=== PATIENT | female | born 1990 | race Caucasian/White ===

== ENCOUNTER 2020-08-19 16:07 | Emergency (ER) | payer SELFPAY ==
[2020-08-19] MEDS ORDERED: Sodium Chloride 0.9% 1,000 ML IV ONE (16:22)
--- NOTE | 2020-08-19 16:37 | EDM.PDOC ---
ED HPI GENERAL MEDICAL PROBLEM - General Chief Complaint: Behavioral/Psych Stated Complaint: [facility] Time Seen by Provider: 08/19/20 16:14 Source of Information: Reports: Patient, EMS Notes Reviewed, Significant Other () History Limitations: Reports: No Limitations - History of Present Illness INITIAL COMMENTS - FREE TEXT/NARRATIVE: Patient is a 30-year-old female who presents to the ED via [facility] for the evaluation of her increased lethargy. [facility] staff noted that they were called to the patient's house from the patient's as he states over the last 3 days, the patient has had increased lethargy where she has been sleeping all day. He notes she has not been eating or drinking much at all, is very concerned for her health. He notes that when she tries to get up to go to the bathroom or anywhere, she is very weak and he has to assist her or carry her. He does note she has a history of hydrocephalus, and has a [employer] shunt which he thinks was placed when she was around 8 years old. Upon presentation, the patient does answer questions as appropriate, she knows she is in the hospital but she does not know which town she is in. The notes that they recently moved from [place], and are moving back at the end of the school year. She has not had any fevers or chills, no nausea or vomiting, no cough or shortness of breath, and the denies any sick contacts that the patient may have had. He notes that since 11 PM on , she went to bed and is just been sleeping all weekend. Patient herself denies any sort of drug use. - Related Data Allergies Allergy/AdvReac Type Severity Reaction Status Date / Time No Known Allergies Allergy Verified 08/19/20 16:16 Home Meds: Home Meds . [Unable to Verify Home Med List] 08/19/20 [History] Past Medical History Neurological History: Reports: Other (See Below) Other Neuro History: hydrocephalus with V-P shunt Social & Family History - Tobacco Use Tobacco Use Status *Q: Never Tobacco User - Recreational Drug Use Recreational Drug Use: No ED ROS GENERAL - Review of Systems Review Of Systems: Comprehensive ROS is negative, except as noted in HPI. - Physical Exam Exam: See Below Exam Limited By: No Limitations General Appearance: Alert (when prompted), WD/WN (pt does have a vague smell of ketones to her), No Apparent Distress, Lethargic Eye Exam: Bilateral Eye: EOMI, Normal Inspection, PERRL Head Exam: Atraumatic, Normocephalic Neck: Normal Inspection Respiratory/Chest: No Respiratory Distress, Lungs Clear, Normal Breath Sounds, No Accessory Muscle Use, Chest Non-Tender Cardiovascular: Normal Peripheral Pulses, Regular Rate, Rhythm, No Edema GI/Abdominal: Normal Bowel Sounds, Soft, Non-Tender, No Distention, No Mass Neuro Exam (Abbreviated): Alert (when prompted, otherwise falls back asleep easily), Normal Cognition (she knows that she is in a hospital, but does not know the town.), No Motor/Sensory Deficits Extremities: Normal Inspection, Normal Capillary Refill Psychiatric: Normal Affect, Normal Mood Skin Exam: Warm, Dry, Intact, Normal Color, No Rash Course - Vital Signs Last Recorded V/S: Last Vital Signs Temp 98.7 F 08/19/20 16:12 Pulse 60 08/19/20 16:12 Resp 16 08/19/20 16:12 BP 114/60 08/19/20 16:12 Pulse Ox 100 08/19/20 16:12 - Orders/Labs/Meds Orders: Active Orders 24 hr Category Date Time Status CULTURE BLOOD [BC] Stat Lab 08/19/20 16:20 Ordered CULTURE BLOOD [BC] Stat Lab 08/19/20 16:20 Ordered CULTURE URINE [RM] Routine Lab 08/19/20 17:23 Ordered REFLEX LACTIC ACID YES OR NO [CHEM] Routine Lab 08/19/20 18:09 Received Blood Culture x2 Reflex Set [OM.PC] Stat Oth 08/19/20 16:20 Ordered Labs: Laboratory Tests 08/19/20 08/19/20 08/19/20 Range/Units 16:15 16:15 16:15 WBC 8.36 (3.98-10.04) K/mm3 RBC 4.13 (3.98-5.22) M/mm3 Hgb 12.5 (11.2-15.7) gm/dl Hct 38.6 (34.1-44.9) % MCV 93.5 (79.4-94.8) fl MCH 30.3 (25.6-32.2) pg MCHC 32.4 (32.2-35.5) g/dl RDW Std Deviation 44.2 (36.4-46.3) fL Plt Count 252 (182-369) K/mm3 MPV 10.7 (9.4-12.3) fl Neutrophils % (Manual) 69 H (40-60) % Band Neutrophils % 0 (0-10) % Lymphocytes % (Manual) 26 (20-40) % Atypical Lymphs % 0 % Monocytes % (Manual) 3 (2-10) % Eosinophils % (Manual) 0 L (0.7-5.8) % Basophils % (Manual) 2 H (0.1-1.2) Platelet Estimate Adequate Plt Morphology Comment Normal RBC Morph Comment Normal PT 11.9 (9.7-12.0) SECONDS INR 1.11 APTT 22.2 (21.7-31.4) SECONDS D-Dimer, Quantitative 0.22 (0.19-0.50) mg/L Sodium (136-145) mEq/L Potassium (3.5-5.1) mEq/L Chloride (98-107) mEq/L Carbon Dioxide (21-32) mEq/L Anion Gap (5-15) BUN (7-18) mg/dL Creatinine (0.55-1.02) mg/dL Est Cr Clr Drug Dosing mL/min Estimated GFR (MDRD) (>60) mL/min BUN/Creatinine Ratio (14-18) Glucose (74-106) mg/dL Lactic Acid (0.4-2.0) mmol/L Calcium (8.5-10.1) mg/dL Magnesium (1.8-2.4) mg/dl Ferritin (8-252) ng/ml Total Bilirubin (0.2-1.0) mg/dL AST (15-37) U/L ALT (14-59) U/L Alkaline Phosphatase (46-116) U/L Lactate Dehydrogenase (81-234) U/L Troponin I (0.00-0.056) ng/mL C-Reactive Protein 0.3 (<1.0) mg/dL NT-Pro-B Natriuret Pep (0-125) pg/mL Total Protein (6.4-8.2) g/dl Albumin (3.4-5.0) g/dl Globulin gm/dL Albumin/Globulin Ratio (1-2) Urine Color (Yellow) Urine Appearance (Clear) Urine pH (5.0-8.0) Ur Specific [place] (1.005-1.030) Urine Protein (Negative) Urine Glucose (UA) (Negative) Urine Ketones (Negative) Urine Occult Blood (Negative) Urine Nitrite (Negative) Urine Bilirubin (Negative) Urine Urobilinogen (0.2-1.0) Ur Leukocyte Esterase (Negative) Urine RBC (0-5) /hpf Urine WBC (0-5) /hpf Ur Epithelial Cells (0-5) /hpf Urine Bacteria (FEW) /hpf Urine Mucus (FEW) /hpf Urine HCG, Qual (NEGATIVE) Salicylates (2.8-20) mg/dL Urine Opiates Screen (OEIKDJ=382) Ur Buprenorphine Scrn (CUTOFF=10) Ur Oxycodone Screen (UEU2FJ=680) Urine Methadone Screen (ERLLQO=793) Ur Propoxyphene Screen (ULPNLW=531) Acetaminophen (10-30) ug/mL Ur Barbiturates Screen (PGDUQW=625) Ur Tricyclics Screen (ZRXJGN=937) Ur Phencyclidine Scrn (CUTOFF=25) Ur Amphetamine Screen (PXQWOL=080) U Methamphetamines Scrn (VSLRFZ=335) U Benzodiazepines Scrn (JTOBII=218) U Cocaine Metab Screen (YDWCSV=094) U Marijuana (THC) Screen (CUTOFF=50) Ethyl Alcohol (0.00) gm% Ketones (0.0-0.3) mM Influenza Type A RNA (NEGATIVE) Influenza Type B RNA (NEGATIVE) SARS-CoV-2 RNA (NHUNG) (NEGATIVE) 08/19/20 08/19/20 08/19/20 Range/Units 16:15 16:15 16:15 WBC (3.98-10.04) K/mm3 RBC (3.98-5.22) M/mm3 Hgb (11.2-15.7) gm/dl Hct (34.1-44.9) % MCV (79.4-94.8) fl MCH (25.6-32.2) pg MCHC (32.2-35.5) g/dl RDW Std Deviation (36.4-46.3) fL Plt Count (182-369) K/mm3 MPV (9.4-12.3) fl Neutrophils % (Manual) (40-60) % Band Neutrophils % (0-10) % Lymphocytes % (Manual) (20-40) % Atypical Lymphs % % Monocytes % (Manual) (2-10) % Eosinophils % (Manual) (0.7-5.8) % Basophils % (Manual) (0.1-1.2) Platelet Estimate Plt Morphology Comment RBC Morph Comment PT (9.7-12.0) SECONDS INR APTT (21.7-31.4) SECONDS D-Dimer, Quantitative (0.19-0.50) mg/L Sodium 145 (136-145) mEq/L Potassium 4.0 (3.5-5.1) mEq/L Chloride 110 H (98-107) mEq/L Carbon Dioxide 23 (21-32) mEq/L Anion Gap 16.0 H (5-15) BUN 14 (7-18) mg/dL Creatinine 0.8 (0.55-1.02) mg/dL Est Cr Clr Drug Dosing 77.31 mL/min Estimated GFR (MDRD) > 60 (>60) mL/min BUN/Creatinine Ratio 17.5 (14-18) Glucose 86 (74-106) mg/dL Lactic Acid (0.4-2.0) mmol/L Calcium 9.2 (8.5-10.1) mg/dL Magnesium 2.0 (1.8-2.4) mg/dl Ferritin 71 (8-252) ng/ml Total Bilirubin 0.6 (0.2-1.0) mg/dL AST 10 L (15-37) U/L ALT 17 (14-59) U/L Alkaline Phosphatase 46 (46-116) U/L Lactate Dehydrogenase 109 (81-234) U/L Troponin I < 0.017 (0.00-0.056) ng/mL C-Reactive Protein (<1.0) mg/dL NT-Pro-B Natriuret Pep 20 (0-125) pg/mL Total Protein 7.4 (6.4-8.2) g/dl Albumin 3.7 (3.4-5.0) g/dl Globulin 3.7 gm/dL Albumin/Globulin Ratio 1.0 (1-2) Urine Color (Yellow) Urine Appearance (Clear) Urine pH (5.0-8.0) Ur Specific [place] (1.005-1.030) Urine Protein (Negative) Urine Glucose (UA) (Negative) Urine Ketones (Negative) Urine Occult Blood (Negative) Urine Nitrite (Negative) Urine Bilirubin (Negative) Urine Urobilinogen (0.2-1.0) Ur Leukocyte Esterase (Negative) Urine RBC (0-5) /hpf Urine WBC (0-5) /hpf Ur Epithelial Cells (0-5) /hpf Urine Bacteria (FEW) /hpf Urine Mucus (FEW) /hpf Urine HCG, Qual (NEGATIVE) Salicylates (2.8-20) mg/dL Urine Opiates Screen (AIDCAS=935) Ur Buprenorphine Scrn (CUTOFF=10) Ur Oxycodone Screen (BLF8DU=258) Urine Methadone Screen (OABFSN=010) Ur Propoxyphene Screen (ETLLJJ=325) Acetaminophen (10-30) ug/mL Ur Barbiturates Screen (IIZOBP=569) Ur Tricyclics Screen (BUFODN=010) Ur Phencyclidine Scrn (CUTOFF=25) Ur Amphetamine Screen (YJHDQO=577) U Methamphetamines Scrn (IXZWBC=031) U Benzodiazepines Scrn (IAXPBV=707) U Cocaine Metab Screen (GIUVIL=346) U Marijuana (THC) Screen (CUTOFF=50) Ethyl Alcohol (0.00) gm% Ketones (0.0-0.3) mM Influenza Type A RNA (NEGATIVE) Influenza Type B RNA (NEGATIVE) SARS-CoV-2 RNA (NHUNG) (NEGATIVE) 08/19/20 08/19/20 08/19/20 Range/Units 16:15 16:15 16:20 WBC (3.98-10.04) K/mm3 RBC (3.98-5.22) M/mm3 Hgb (11.2-15.7) gm/dl Hct (34.1-44.9) % MCV (79.4-94.8) fl MCH (25.6-32.2) pg MCHC (32.2-35.5) g/dl RDW Std Deviation (36.4-46.3) fL Plt Count (182-369) K/mm3 MPV (9.4-12.3) fl Neutrophils % (Manual) (40-60) % Band Neutrophils % (0-10) % Lymphocytes % (Manual) (20-40) % Atypical Lymphs % % Monocytes % (Manual) (2-10) % Eosinophils % (Manual) (0.7-5.8) % Basophils % (Manual) (0.1-1.2) Platelet Estimate Plt Morphology Comment RBC Morph Comment PT (9.7-12.0) SECONDS INR APTT (21.7-31.4) SECONDS D-Dimer, Quantitative (0.19-0.50) mg/L Sodium (136-145) mEq/L Potassium (3.5-5.1) mEq/L Chloride (98-107) mEq/L Carbon Dioxide (21-32) mEq/L Anion Gap (5-15) BUN (7-18) mg/dL Creatinine (0.55-1.02) mg/dL Est Cr Clr Drug Dosing mL/min Estimated GFR (MDRD) (>60) mL/min BUN/Creatinine Ratio (14-18) Glucose (74-106) mg/dL Lactic Acid (0.4-2.0) mmol/L Calcium (8.5-10.1) mg/dL Magnesium (1.8-2.4) mg/dl Ferritin (8-252) ng/ml Total Bilirubin (0.2-1.0) mg/dL AST (15-37) U/L ALT (14-59) U/L Alkaline Phosphatase (46-116) U/L Lactate Dehydrogenase (81-234) U/L Troponin I (0.00-0.056) ng/mL C-Reactive Protein (<1.0) mg/dL NT-Pro-B Natriuret Pep (0-125) pg/mL Total Protein (6.4-8.2) g/dl Albumin (3.4-5.0) g/dl Globulin gm/dL Albumin/Globulin Ratio (1-2) Urine Color Yellow (Yellow) Urine Appearance Cloudy H (Clear) Urine pH 5.5 (5.0-8.0) Ur Specific [place] > or = 1.030 (1.005-1.030) Urine Protein 1+ H (Negative) Urine Glucose (UA) Negative (Negative) Urine Ketones 2+ H (Negative) Urine Occult Blood Negative (Negative) Urine Nitrite Negative (Negative) Urine Bilirubin 2+ H (Negative) Urine Urobilinogen 0.2 (0.2-1.0) Ur Leukocyte Esterase Trace H (Negative) Urine RBC 0-5 (0-5) /hpf Urine WBC 0-5 (0-5) /hpf Ur Epithelial Cells 5-10 H (0-5) /hpf Urine Bacteria Moderate H (FEW) /hpf Urine Mucus Not seen (FEW) /hpf Urine HCG, Qual (NEGATIVE) Salicylates (2.8-20) mg/dL Urine Opiates Screen (ADOJUY=713) Ur Buprenorphine Scrn (CUTOFF=10) Ur Oxycodone Screen (DQK1HB=937) Urine Methadone Screen (VWECRN=825) Ur Propoxyphene Screen (CRRFUC=647) Acetaminophen 0 L (10-30) ug/mL Ur Barbiturates Screen (KLBCVG=882) Ur Tricyclics Screen (EXXPCX=363) Ur Phencyclidine Scrn (CUTOFF=25) Ur Amphetamine Screen (CEYIBR=395) U Methamphetamines Scrn (OYUYYR=745) U Benzodiazepines Scrn (XQOIBO=768) U Cocaine Metab Screen (NANCRY=881) U Marijuana (THC) Screen (CUTOFF=50) Ethyl Alcohol (0.00) gm% Ketones 1.65 (0.0-0.3) mM Influenza Type A RNA (NEGATIVE) Influenza Type B RNA (NEGATIVE) SARS-CoV-2 RNA (NHUNG) (NEGATIVE) 08/19/20 08/19/20 08/19/20 Range/Units 16:20 16:20 16:35 WBC (3.98-10.04) K/mm3 RBC (3.98-5.22) M/mm3 Hgb (11.2-15.7) gm/dl Hct (34.1-44.9) % MCV (79.4-94.8) fl MCH (25.6-32.2) pg MCHC (32.2-35.5) g/dl RDW Std Deviation (36.4-46.3) fL Plt Count (182-369) K/mm3 MPV (9.4-12.3) fl Neutrophils % (Manual) (40-60) % Band Neutrophils % (0-10) % Lymphocytes % (Manual) (20-40) % Atypical Lymphs % % Monocytes % (Manual) (2-10) % Eosinophils % (Manual) (0.7-5.8) % Basophils % (Manual) (0.1-1.2) Platelet Estimate Plt Morphology Comment RBC Morph Comment PT (9.7-12.0) SECONDS INR APTT (21.7-31.4) SECONDS D-Dimer, Quantitative (0.19-0.50) mg/L Sodium (136-145) mEq/L Potassium (3.5-5.1) mEq/L Chloride (98-107) mEq/L Carbon Dioxide (21-32) mEq/L Anion Gap (5-15) BUN (7-18) mg/dL Creatinine (0.55-1.02) mg/dL Est Cr Clr Drug Dosing mL/min Estimated GFR (MDRD) (>60) mL/min BUN/Creatinine Ratio (14-18) Glucose (74-106) mg/dL Lactic Acid (0.4-2.0) mmol/L Calcium (8.5-10.1) mg/dL Magnesium (1.8-2.4) mg/dl Ferritin (8-252) ng/ml Total Bilirubin (0.2-1.0) mg/dL AST (15-37) U/L ALT (14-59) U/L Alkaline Phosphatase (46-116) U/L Lactate Dehydrogenase (81-234) U/L Troponin I (0.00-0.056) ng/mL C-Reactive Protein (<1.0) mg/dL NT-Pro-B Natriuret Pep (0-125) pg/mL Total Protein (6.4-8.2) g/dl Albumin (3.4-5.0) g/dl Globulin gm/dL Albumin/Globulin Ratio (1-2) Urine Color (Yellow) Urine Appearance (Clear) Urine pH (5.0-8.0) Ur Specific [place] (1.005-1.030) Urine Protein (Negative) Urine Glucose (UA) (Negative) Urine Ketones (Negative) Urine Occult Blood (Negative) Urine Nitrite (Negative) Urine Bilirubin (Negative) Urine Urobilinogen (0.2-1.0) Ur Leukocyte Esterase (Negative) Urine RBC (0-5) /hpf Urine WBC (0-5) /hpf Ur Epithelial Cells (0-5) /hpf Urine Bacteria (FEW) /hpf Urine Mucus (FEW) /hpf Urine HCG, Qual Negative (NEGATIVE) Salicylates (2.8-20) mg/dL Urine Opiates Screen Negative (QEXXFM=308) Ur Buprenorphine Scrn Negative (CUTOFF=10) Ur Oxycodone Screen Negative (BSE4WC=137) Urine Methadone Screen Negative (FVHCYM=092) Ur Propoxyphene Screen Negative (HTIDRP=859) Acetaminophen (10-30) ug/mL Ur Barbiturates Screen Negative (FHYZWS=853) Ur Tricyclics Screen Negative (WECIOF=335) Ur Phencyclidine Scrn Negative (CUTOFF=25) Ur Amphetamine Screen Negative (NZGOOH=880) U Methamphetamines Scrn Negative (FZETJU=026) U Benzodiazepines Scrn Negative (UOGOIT=471) U Cocaine Metab Screen Negative (RBQKGI=349) U Marijuana (THC) Screen Presumptive positive H (CUTOFF=50) Ethyl Alcohol 0.00 (0.00) gm% Ketones (0.0-0.3) mM Influenza Type A RNA (NEGATIVE) Influenza Type B RNA (NEGATIVE) SARS-CoV-2 RNA (NHUNG) (NEGATIVE) 08/19/20 08/19/20 08/19/20 Range/Units 16:43 17:05 17:05 WBC (3.98-10.04) K/mm3 RBC (3.98-5.22) M/mm3 Hgb (11.2-15.7) gm/dl Hct (34.1-44.9) % MCV (79.4-94.8) fl MCH (25.6-32.2) pg MCHC (32.2-35.5) g/dl RDW Std Deviation (36.4-46.3) fL Plt Count (182-369) K/mm3 MPV (9.4-12.3) fl Neutrophils % (Manual) (40-60) % Band Neutrophils % (0-10) % Lymphocytes % (Manual) (20-40) % Atypical Lymphs % % Monocytes % (Manual) (2-10) % Eosinophils % (Manual) (0.7-5.8) % Basophils % (Manual) (0.1-1.2) Platelet Estimate Plt Morphology Comment RBC Morph Comment PT (9.7-12.0) SECONDS INR APTT (21.7-31.4) SECONDS D-Dimer, Quantitative (0.19-0.50) mg/L Sodium (136-145) mEq/L Potassium (3.5-5.1) mEq/L Chloride (98-107) mEq/L Carbon Dioxide (21-32) mEq/L Anion Gap (5-15) BUN (7-18) mg/dL Creatinine (0.55-1.02) mg/dL Est Cr Clr Drug Dosing mL/min Estimated GFR (MDRD) (>60) mL/min BUN/Creatinine Ratio (14-18) Glucose (74-106) mg/dL Lactic Acid 2.4 H* (0.4-2.0) mmol/L Calcium (8.5-10.1) mg/dL Magnesium (1.8-2.4) mg/dl Ferritin (8-252) ng/ml Total Bilirubin (0.2-1.0) mg/dL AST (15-37) U/L ALT (14-59) U/L Alkaline Phosphatase (46-116) U/L Lactate Dehydrogenase (81-234) U/L Troponin I (0.00-0.056) ng/mL C-Reactive Protein (<1.0) mg/dL NT-Pro-B Natriuret Pep (0-125) pg/mL Total Protein (6.4-8.2) g/dl Albumin (3.4-5.0) g/dl Globulin gm/dL Albumin/Globulin Ratio (1-2) Urine Color (Yellow) Urine Appearance (Clear) Urine pH (5.0-8.0) Ur Specific [place] (1.005-1.030) Urine Protein (Negative) Urine Glucose (UA) (Negative) Urine Ketones (Negative) Urine Occult Blood (Negative) Urine Nitrite (Negative) Urine Bilirubin (Negative) Urine Urobilinogen (0.2-1.0) Ur Leukocyte Esterase (Negative) Urine RBC (0-5) /hpf Urine WBC (0-5) /hpf Ur Epithelial Cells (0-5) /hpf Urine Bacteria (FEW) /hpf Urine Mucus (FEW) /hpf Urine HCG, Qual (NEGATIVE) Salicylates 1.5 L (2.8-20) mg/dL Urine Opiates Screen (TJSBCJ=955) Ur Buprenorphine Scrn (CUTOFF=10) Ur Oxycodone Screen (KKC8XY=779) Urine Methadone Screen (KHXRVX=248) Ur Propoxyphene Screen (MWIFWV=794) Acetaminophen (10-30) ug/mL Ur Barbiturates Screen (RVHQGE=196) Ur Tricyclics Screen (JYBPCE=629) Ur Phencyclidine Scrn (CUTOFF=25) Ur Amphetamine Screen (GJIFRB=031) U Methamphetamines Scrn (RLWUJC=496) U Benzodiazepines Scrn (DXEFHT=953) U Cocaine Metab Screen (QPKYZZ=598) U Marijuana (THC) Screen (CUTOFF=50) Ethyl Alcohol (0.00) gm% Ketones (0.0-0.3) mM Influenza Type A RNA Negative (NEGATIVE) Influenza Type B RNA Negative (NEGATIVE) SARS-CoV-2 RNA (NHUNG) Negative (NEGATIVE) Meds: Medications Discontinued Medications Generic Name Dose Route Start Last Admin Trade Name Jacklyn PRN Reason Stop Dose Admin Sodium Chloride 1,000 mls @ 999 mls/hr 08/19/20 16:22 08/19/20 16:43 Normal Saline IV 08/19/20 17:22 999 mls/hr ONETIME ONE Administration - Re-Assessments/Exams Free Text/Narrative Re-Assessment/Exam: 08/19/20 16:37 Patient presents to the ED via [facility], for her increased lethargy. We will check a multitude of labs, chest x-ray, head CT, give her some IV fluids to try to see if we can figure out what is going on with the patient. 08/19/20 17:24 Patient's lab work has pretty much resulted, her CBC is within normal limits, coagulation studies are within normal limits. Metabolic panel is essentially okay, anion gap is slightly elevated at 16.0. hCG was negative. Ketones are elevated at 1.65, urine drug screen is presumptive positive for marijuana. Urinalysis shows cloudy urine with trace leukocyte esterase, 5-10 epithelial cells and moderate bacteria, not grossly positive for UTI, nursing staff reported that they had some issues cathing the patient, so this could be contaminant, culture is being sent at this time. CT of her head is still pending, chest x-ray has been done and does appear to be within normal limits. 08/19/20 18:22 Patient's Covid swab is negative. The CT did come back and shows dilated ventricles, raising the question of possible shunt malfunction. I did call [facility] in [place] and was in consult with Dr. Alexander the neurosurgeon and he does graciously accept the patient in transfer but request that they be sent to the ER for initial presentation and then he will likely evaluate her and take her to the OR. He did also request that the 's be sent to [place], for consent purposes. We will call the and tell him as such. Departure - Departure Time of Disposition: 18:23 Disposition: DC/Tfer to Acute Hospital 02 Condition: Good Clinical Impression: Shunt malfunction Qualifiers: Encounter type: initial encounter Qualified Code(s): T85.618A - Breakdown (mechanical) of other specified internal prosthetic devices, implants and grafts, initial encounter - Discharge Information Referrals: PCP,None [Primary Care Provider] - Forms: ED Department Discharge Sepsis Event Note (ED) - Evaluation Sepsis Screening Result: No Definite Risk - Focused Exam Vital Signs: Vital Signs Temp Pulse Resp BP Pulse Ox 08/19/20 16:12 98.7 F 60 16 114/60 100 - My Orders Last 24 Hours: My Active Orders 08/19/20 16:20 CULTURE BLOOD [BC] Stat CULTURE BLOOD [BC] Stat Blood Culture x2 Reflex Set [OM.PC] Stat 08/19/20 17:23 CULTURE URINE [RM] Routine 08/19/20 18:09 REFLEX LACTIC ACID YES OR NO [CHEM] Routine - Assessment/Plan Last 24 Hours: My Active Orders 08/19/20 16:20 CULTURE BLOOD [BC] Stat CULTURE BLOOD [BC] Stat Blood Culture x2 Reflex Set [OM.PC] Stat 08/19/20 17:23 CULTURE URINE [RM] Routine 08/19/20 18:09 REFLEX LACTIC ACID YES OR NO [CHEM] Routine
[2020-08-19 17:27] LABS: CORONAVIRUS COVID-19 NAA NEGATIVE (NEGATIVE)
--- NOTE | 2020-08-19 17:28 | CR ---
Chest: Portable view of the chest was obtained. Comparison: No previous study. Heart size and mediastinum are normal. Lungs show slight linear densities within the left base. Lungs otherwise are clear. Bony structures are grossly intact. Impression: 1. Slight linear densities within the left lung base. 2. Nothing acute is otherwise seen on portable chest x-ray. Diagnostic code #2
--- NOTE | 2020-08-19 17:54 | CT ---
Head CT Technique: Multiple axial sections were obtained through the brain. Intervenous contrast was not utilized. Findings: Ventricles are dilated. Intraventricular shunt is seen. Low density area is noted around the entrance of the intraventricular shunt which is most likely chronic. Slight low density area is also noted within the posterior right frontal region likely relating to previous shunt that has been removed. No evidence of intracranial hemorrhage. Slight diminished density is noted adjacent to the temporal horns and posterior horns as well as body of the atria which are fairly symmetric. No acute calvarial finding is seen. Mild mucosal thickening is seen inferiorly within the right maxillary sinus. Nothing acute is seen within the visualized paranasal sinuses. Impression: 1. Dilated ventricles. Diminished density adjacent to the ventricles as described above. This raises the question of possible shunt malfunction. Please correlate. 2. Other postsurgical change is noted. 3. No acute intracranial hemorrhage is seen. 4. Slight mucosal thickening within the inferior right mastoid sinus most likely chronic. Diagnostic code #3
[2020-08-19] MEDS ORDERED: Dextrose 5%-0.9% NaCl 1,000 ML IV SCH ×2 (18:36→18:45)
== END 2020-08-19 18:45 ==
LOC: JD.ED 16:07
DX: T85.09XA Other mechanical complication of ventricular intracranial (communicating) shunt, initial encounter (principal); Z20.822 Contact with and (suspected) exposure to COVID-19
CPT/HCPCS: 0240U; 36415; 70450; 71045; 80053; 80143; 80179; 80306; 80307; 81001; 81025; 82009; 82728; 83605; 83615; 83735; 83880; 84484; 85007; 85027; 85379; 85610; 85730; 86140; 87040; 87086; 99285; J7030

== ENCOUNTER 2020-09-18 14:26 | Emergency (ER) | payer MEDICAID ==
--- NOTE | 2020-09-18 15:22 | CT ---
Head CT Technique: Multiple axial sections through the brain were obtained. Intravenous contrast was not utilized. Reconstructed coronal and sagittal images were obtained. Comparison: Prior head CT study of 08/19/20. Findings: Decreased size of the ventricular system is seen from prior exam. Shunt remains in place. Diminished density is noted within the right frontal region posteriorly which is stable. Sulci over the convexities are mildly prominent which is stable. There are no other abnormal parenchymal densities being seen. No evidence of intracranial hemorrhage. No midline shift or mass-effect is appreciated. Bone window settings were reviewed. No acute calvarial finding is seen. Minimal mucosal thickening is noted within the inferior right maxillary sinus which is stable. Impression: 1. Decreased ventricular size from prior exam. 2. Shunt is in place. 3. Other findings as previously noted which are stable. Nothing acute is appreciated. Diagnostic code #2
--- NOTE | 2020-09-18 15:28 | EDM.PDOC ---
ED HPI GENERAL MEDICAL PROBLEM - General Chief Complaint: Headache Stated Complaint: HEADACHE Time Seen by Provider: 09/18/20 14:38 Source of Information: Reports: Patient, Old Records, RN Notes Reviewed History Limitations: Reports: No Limitations - History of Present Illness INITIAL COMMENTS - FREE TEXT/NARRATIVE: Patient is a 30-year-old female presenting to the emergency department with complaints of recurrent headaches as well as blurry vision and difficulty focusing. Today, she woke up feeling fine but after a couple hours she developed a frontal headache with pressure behind her eyes that she rates 10 out of 10. She denies any dizziness. States she took some ibuprofen a few hours prior to coming to the ER with little relief. She was seen in this emergency department on 19 August and diagnosed with an obstruction her [employer] shunt. She was transferred to [facility] in [place] and states that the shunt was replaced and that she was discharged on August 25. Since that time, she has been having these symptoms intermittently, but states that today symptoms are worse. She has not been using the button on her [employer] shunt. She states that she is not even sure that she has a button since it was replaced and that in the past she did not use it because it would hurt. She has not had a follow-up with her neurosurgeon since discharge. She has had no fever, chills, nausea, or vomiting. Headache Pain Score (Numeric/FACES): 10 - Related Data Allergies Allergy/AdvReac Type Severity Reaction Status Date / Time blueberry Allergy Rash Verified 09/18/20 14:37 hydrocodone Allergy Agitation Verified 09/18/20 14:38 Home Meds: Home Meds . [No Known Home Meds] 09/18/20 [History] Past Medical History Neurological History: Reports: Other (See Below) Other Neuro History: hydrocephalus with V-P shunt Social & Family History - Tobacco Use Tobacco Use Status *Q: Never Tobacco User - Recreational Drug Use Recreational Drug Use: No ED ROS GENERAL - Review of Systems Review Of Systems: See Below Constitutional: Reports: No Symptoms. Denies: Fever, Chills, Weakness, Fatigue HEENT: Reports: Vision Change Respiratory: Reports: No Symptoms Cardiovascular: Reports: No Symptoms Endocrine: Reports: No Symptoms GI/Abdominal: Reports: No Symptoms : Reports: No Symptoms Musculoskeletal: Reports: No Symptoms Skin: Reports: No Symptoms Neurological: Reports: Headache. Denies: Confusion, Dizziness Psychiatric: Reports: No Symptoms Hematologic/Lymphatic: Reports: No Symptoms Immunologic: Reports: No Symptoms - Physical Exam Exam: See Below General Appearance: Alert, WD/WN, No Apparent Distress Eye Exam: Bilateral Eye: Normal Inspection, PERRL Respiratory/Chest: No Respiratory Distress, Lungs Clear, Normal Breath Sounds, No Accessory Muscle Use, Chest Non-Tender Cardiovascular: Normal Peripheral Pulses, Regular Rate, Rhythm, No Edema, No Gallop, No JVD, No Murmur, No Rub Neuro Exam (Abbreviated): Alert, Oriented, CN II-XII Intact, Normal Cognition, Normal Gait, Normal Reflexes, No Motor/Sensory Deficits Psychiatric: Normal Mood, Flat Affect Skin Exam: Warm, Dry, Intact, Normal Color, No Rash Course - Vital Signs Last Recorded V/S: Last Vital Signs Temp 98 F 09/18/20 14:36 Pulse 56 L 09/18/20 14:36 Resp 16 09/18/20 14:36 BP 125/103 H 09/18/20 14:36 Pulse Ox 99 09/18/20 14:36 - Orders/Labs/Meds Orders: Active Orders 24 hr Category Date Time Status Sodium Chloride 0.9% [Normal Saline] 1,000 ml Med 09/18/20 15:36 Active IV NOW Medication Orders Sodium Chloride (Normal Saline) 1,000 mls @ 999 mls/hr IV NOW STA Stop: 09/18/20 16:36 Meds: Medications Generic Name Dose Route Start Last Admin Trade Name Freq PRN Reason Stop Dose Admin Sodium Chloride 1,000 mls @ 999 mls/hr 09/18/20 15:36 Normal Saline IV 09/18/20 16:36 NOW STA Discontinued Medications Generic Name Dose Route Start Last Admin Trade Name Freq PRN Reason Stop Dose Admin Diphenhydramine HCl 25 mg 09/18/20 15:36 Benadryl IVPUSH 09/18/20 15:37 ONETIME ONE Ketorolac Tromethamine 30 mg 09/18/20 15:36 Toradol IVPUSH 09/18/20 15:37 ONETIME ONE Ondansetron HCl 4 mg 09/18/20 15:36 Zofran IVPUSH 09/18/20 15:37 ONETIME ONE - Re-Assessments/Exams Free Text/Narrative Re-Assessment/Exam: Patient is a 30-year-old female presenting to the emergency department with complaints of recurrent headaches, blurry vision, difficulty focusing since having her [employer] shunt replaced at the beginning of August. She is quite a poor historian but does states she has been having problems with this since discharge. Headache today is worse than it had been previously. Neurologic exam is grossly unremarkable. She does have a button on her [employer] shunt which I did push a number of times and this did not cause any significant pain but did not change her symptoms. She states her pain is tolerable at this point and that she would be okay to complete a CT scan prior to receiving pain medications. I have ordered a CT scan of her head. Once this is available, I will consult with neurosurgery. 09/18/20 15:35 CT scan of the head shows decreased ventricular size from previous exam. Shunt is in place. Other findings as previously noted above are stable. Nothing acute is appreciated. Case discussed with the neurosurgeon at [facility] in [place], Dr. Cartwright. He recommended treating the headache and that no further work-up is required at this time. They have a 6-week follow-up appointment scheduled with her and will make adjustments as needed at that time. He did state that if her headaches continue to be recurrent, she may call to see them sooner. Discussed this with the patient. She states she does have a follow-up appointment scheduled in a couple weeks. We will treat her headache. I have ordered 1 L bolus of normal saline, Toradol 30 mg IV, Zofran 4 mg IV, and Benadryl 25 mg IV. 09/18/20 15:58 Patient has decided that she does not want medications to treat her headache. States that she just wanted to make sure that her shunt was okay. She would like to go home and sleep. Discharge instructions as documented. Departure - Departure Time of Disposition: 15:58 Disposition: Home, Self-Care 01 Condition: Good Clinical Impression: Headache Qualifiers: Headache type: unspecified Headache chronicity pattern: acute headache Intractability: not intractable Qualified Code(s): R51.9 - Headache, unspecified - Discharge Information *PRESCRIPTION DRUG MONITORING PROGRAM REVIEWED*: No *COPY OF PRESCRIPTION DRUG MONITORING REPORT IN PATIENT SYBIL: No Instructions: General Headache Without Cause, [id number] Forms: ED Department Discharge Additional Instructions: You were seen in the emergency department today for evaluation of recurrent headaches. CT scans were completed on your head and shows that your shunt is functioning appropriately. Your case was discussed with the neurosurgeon at [facility] in [place]. He recommended follow-up with them at their 6-week appointment. If your headaches continue to recur, you may follow-up with them sooner. Recommend that you go home and rest. Use Tylenol or ibuprofen as needed for discomfort. Return to ER for any new or worsening symptoms of concern. Sepsis Event Note (ED) - Evaluation Sepsis Screening Result: No Definite Risk - Focused Exam Vital Signs: Vital Signs Temp Pulse Resp BP Pulse Ox 09/18/20 14:36 98 F 56 L 16 125/103 H 99 - My Orders Last 24 Hours: My Active Orders 09/18/20 15:36 Sodium Chloride 0.9% [Normal Saline] 1,000 ml IV NOW - Assessment/Plan Last 24 Hours: My Active Orders 09/18/20 15:36 Sodium Chloride 0.9% [Normal Saline] 1,000 ml IV NOW
[2020-09-18] MEDS ORDERED: Ketorolac 30 MG/ML SDV IVPUSH ONE (15:36)
[2020-09-18] MEDS ORDERED: Sodium Chloride 0.9% 1,000 ML IV STA (15:36)
[2020-09-18] MEDS ORDERED: diphenhydrAMINE 50 MG/ML SDV IVPUSH ONE (15:36)
[2020-09-18] MEDS ORDERED: Ondansetron 4 MG/2 ML SDV IVPUSH ONE (15:36)
== END 2020-09-18 16:09 | disposition home or self-care (01) ==
LOC: JD.ED 14:26
DX: R51.9 Headache, unspecified (principal); Z91.018 Allergy to other foods; Z88.5 Allergy status to narcotic agent
CPT/HCPCS: 70450; 70450-26; 99284; 99284-25